=== PATIENT | female | born 1990 | race Caucasian/White ===

== ENCOUNTER 2017-05-09 05:29 | Emergency (ER) | payer OTHER ==
--- NOTE | 2017-05-09 06:46 | ED ORDER SUMMARY ---
..... Patient: LUIS PHAM OrderSheet [facility] VisitID: [id number] [address] [place] [address] 26y, F Registration Date/Time: 05/09/2017 ORDER SHEET Weight: 58.9 kg (stated) Allergies: Penicillins, Sulfa Antibiotics GENERAL ORDERS: I&D Tray (06:15 05/09/2017 Yenny Gregory) (6:18 Aranza Pina) Culture, Wound Deep (Arm) (pus) Urgent (06:16 05/09/2017 Yenny Gregory) (6:18 Aranza Marina.Jing) MEDICATION ORDERS: IV FLUIDS: ORDER SHEET NOTES: [Electronically signed by Meg Singh R.N. (06:58 05/09/2017)] [Electronically signed by Umesh Lind Dr. (05:47 05/11/2017)] [Electronically locked/signed by Meg Singh R.N. (06:58 05/09/2017)]
--- NOTE | 2017-05-09 06:46 | ED CLINICAL REPORT ---
Clinical Report - Physicians/Mid Levels [facility] [address] [place] [address] 05/09/2017 5:33 Patient: LUIS PHAM Time Seen: 05:39; initial patient contact. Arrived- By private vehicle. Historian- patient. HISTORY OF PRESENT ILLNESS Chief Complaint: SKIN RASH and BOIL. This started Boil on L arm x 1 week, leg cellulitis x 1 month and is still present. It was gradual in onset. It is described as painful. It has been located on the left upper extremity and left lower extremity. A possible cause has been identified (IVDA). No recent medication or insect bite. Similar symptoms previously: None. Recent medical care: Not recently seen/assessed. REVIEW OF SYSTEMS No fever, chills or enlarged lymph nodes. All systems otherwise negative, except as recorded above. PAST HISTORY Abscess. Anxiety Reaction. Tetanus immunization status is up-to-date. Additional Surgeries: no known surgeries. Medications: None. Allergies: Penicillins. Definite Severe(hives) Sulfa Antibiotics. (unknown). SOCIAL HISTORY Current every day smoker. History of drug use: heroin, marijuana. ADDITIONAL NOTES The nursing notes have been reviewed. PHYSICAL EXAM Vital Signs: 05/09/2017 05:40 BP: 150/94. HR: 108. RR: 18. O2 saturation: 96%. Temp: 97.7 F. Pain level now: 0/10. Have been reviewed. Hypertensive. Tachycardic. Respiratory rate normal. Temperature normal. Oxygen saturation normal. Appearance: Alert. Oriented X3. No acute distress. Skin: Medium area of cellulitis with tenderness and erythema to left leg. Single medium abscess with fluctuance and pointing to left forearm. Neuro: Oriented X 3. PROGRESS AND PROCEDURES Incision & Drainage of Abscess: Per protocol, time-out completed immediately before the procedure. The abscess is located in the left forearm. Local anesthesia provided using 2% lidocaine. Skin cleansed with Hibiclens. The abscess was incised with a #11 surgical blade. A moderate amount of pus was drained. Cavity was irrigated with saline and packed with gauze. Sample obtained for cultures. A dressing was applied. Estimated blood loss: 5 mL. Disposition: Discharged home in good and improved condition. Condition: good. CLINICAL IMPRESSION Single deep abscess to the left upper extremity with incision and drainage. Cellulitis of the left lower leg. INSTRUCTIONS Your Current Medications: CONTINUE TAKING THE FOLLOWING MEDICATIONS: None*. Prescription Medications: Baclofen 10 mg: take 1 orally every 8 hours. Dispense thirty (30). No refills. Bactroban 2% ointment: apply small amount to affected area three times daily until symptoms better. Dispense twenty-two (22) grams. No refills. Substitution is permissible. Clindamycin 300 mg: take 1 capsule orally every 6 hours for 7 days. No refill. Follow-up: Return to the emergency department in two days for wound check. Screening today revealed the patient's blood pressure to be in the hypertensive range. The patient should follow up with a primary care provider for blood pressure management. Follow-up with: [facility], , , [address], [facility], [id number] Follow up in about two days for wound check. (Electronically signed by Umesh Lind Dr. 05/11/2017 5:47)
--- NOTE | 2017-05-09 06:46 | ED NURSING NOTES ---
Clinical Report - Nurses [facility] [address] [place] [address] 05/09/2017 5:33 Patient: LUIS PHAM TRIAGE Triage time 05:38. Acuity: LEVEL 3. Chief Complaint: SKIN LESION. --05:54 Meg Singh R.N. 05:40 05/09/17. BP: 150/94 taken on the right arm, while lying. HR: 108 (regular and tachycardic). RR: 18. O2 saturation: 96% on room air. Temp: 97.7 F (oral). Pain level now: 0/10. --05:54 Meg Singh R.N. Weight: 58.9 kg stated. Height/Length: 63 inches Per Patient. BMI: 23. --05:48 Meg Singh R.N. Medications None. --05:51 Meg Singh R.N. Allergies Penicillins. Definite Severe(hives) Sulfa Antibiotics. (unknown) --05:52 Meg Singh R.N. History Arrived by private vehicle. Historian: patient. Reported as located on the left arm and left leg. Onset. (leg x month left arm x 1 week). It is described as painful. ( pt reports abscess to left arm x 1week, and open wound to lower left leg for 1 month from falling on gravel). She has had muscle aches. PAST MEDICAL HX: Immunizations: up-to-date. Last normal menstrual period- about 2 months ago. 0. Sexual history - sexually active. No contraception. SOCIAL HX: Never smoker. Occasional alcohol use. History of heavy IV drug use: heroin, marijuana. Recently used drugs today. No infectious disease exposure. ABUSE ASSESSMENT: No report of abuse. SELF HARM ASSESSMENT: A self harm assessment was performed. The patient answered "no" to the question "Have you recently felt down, depressed, or hopeless?", "Have you noticed less interest or pleasure in doing things?", "Do you have thoughts of harming or killing yourself?", "Are you here because you tried to hurt yourself?", "Have you ever tried to hurt yourself before today?", "Have you recently had thoughts about harming or killing others?" and "Do you have any dangerous items in your possession?". FALL RISK ASSESSMENT: Fall risk assessment completed. No fall risk identified. NUTRITIONAL RISK ASSESSMENT: The nutritional risk assessment revealed no deficiencies. FUNCTIONAL ASSESSMENT: Functional assessment: no impairments noted. LEARNING NEEDS ASSESSMENT: The learning needs assessment revealed no barriers. SKIN INTEGRITY ASSESSMENT: Skin integrity risk assessment completed. No skin integrity risk identified. --05:54 Meg Singh R.N. Accompanied by family. Primary physician (none). --05:54 Meg Singh R.N. PROBLEMS: Abscess. Anxiety Reaction. Immunizations. LNMP - Last Normal Menstrual Period. --05:52 Meg Singh R.N. ADDITIONAL SURGERIES: no known surgeries. Interventions ID band on patient. To treatment room. --05:54 Meg Singh R.N. PHYSICAL ASSESSMENT Ambulatory to room. GENERAL / NEURO / PSYCH: Alert. The patient does not appear to be in acute distress. Oriented X 4. HEENT: Pupils equal, round and reactive to light. Mucous membranes are pink. RESPIRATORY: Respirations not labored. Breath sounds within normal limits. CVS: Capillary refill less than 2 seconds. Pulses within normal limits. GI / : Abdomen nontender. SKIN: Skin is warm and dry. Single deep ulceration with erythema and tenderness on the left leg- pt reports blister from fall 1 month ago open and appox 4 cm in dm at time time. Single wound with tenderness on the left forearm- abscess. --05:57 Meg Singh R.N. NURSING PROGRESS NOTES Patient gowned. Two patient identifiers checked. Call light placed in reach. Side rails up x 1. Bed placed in lowest position. Brakes of bed on. Patient ready for evaluation- chart flagged. --05:57 Meg Singh R.N. Applied dressing consisting of Tegaderm and 4x4 gauze. ( xeroform and kerlix applied to left leg wound per MD request,). --06:52 Francisco, Meg, R.N. DISPOSITION / DISCHARGE Departure time: 654. Condition at departure: improved and stable. No learning barriers present. Discharge instructions provided and reviewed with the patient. Reviewed medication(s) side effects, precautions, dosing and course information. Prescription(s) given to the patient. Reviewed wound care instructions. Reviewed referral to family practice for followup. Follow up contact number [phone]. Patient verbalized understanding. Written instructions provided in Malaysian. The patient was discharged home and accompanied by friend. She left the Emergency Department ambulatory and via private vehicle. Cost And Risk Analysis Manager driving. --06:58 Meg Singh R.N. 06:56 05/09/17. BP: 119/71 taken on the right arm, while lying. HR: 104 (regular and tachycardic). RR: 18 (regular and unlabored). O2 saturation: 100% on room air. Temp: deferred. Pain level now deferred. --06:58 Meg Singh R.N. Locked/Released at 05/09/2017 6:58 by Meg Singh R.N.
--- NOTE | 2017-05-09 06:46 | ED CLINICAL REPORT ---
Clinical Report - Physicians/Mid Levels [facility] [address] [place] [address] 05/09/2017 5:33 Patient: LUIS PHAM Time Seen: 05:39; initial patient contact. Arrived- By private vehicle. Historian- patient. HISTORY OF PRESENT ILLNESS Chief Complaint: SKIN RASH and BOIL. This started Boil on L arm x 1 week, leg cellulitis x 1 month and is still present. It was gradual in onset. It is described as painful. It has been located on the left upper extremity and left lower extremity. A possible cause has been identified (IVDA). No recent medication or insect bite. Similar symptoms previously: None. Recent medical care: Not recently seen/assessed. REVIEW OF SYSTEMS No fever, chills or enlarged lymph nodes. All systems otherwise negative, except as recorded above. PAST HISTORY Abscess. Anxiety Reaction. Tetanus immunization status is up-to-date. Additional Surgeries: no known surgeries. Medications: None. Allergies: Penicillins. Definite Severe(hives) Sulfa Antibiotics. (unknown). SOCIAL HISTORY Current every day smoker. History of drug use: heroin, marijuana. ADDITIONAL NOTES The nursing notes have been reviewed. PHYSICAL EXAM Vital Signs: 05/09/2017 05:40 BP: 150/94. HR: 108. RR: 18. O2 saturation: 96%. Temp: 97.7 F. Pain level now: 0/10. Have been reviewed. Hypertensive. Tachycardic. Respiratory rate normal. Temperature normal. Oxygen saturation normal. Appearance: Alert. Oriented X3. No acute distress. Skin: Medium area of cellulitis with tenderness and erythema to left leg. Single medium abscess with fluctuance and pointing to left forearm. Neuro: Oriented X 3. PROGRESS AND PROCEDURES Incision & Drainage of Abscess: Per protocol, time-out completed immediately before the procedure. The abscess is located in the left forearm. Local anesthesia provided using 2% lidocaine. Skin cleansed with Hibiclens. The abscess was incised with a #11 surgical blade. A moderate amount of pus was drained. Cavity was irrigated with saline and packed with gauze. Sample obtained for cultures. A dressing was applied. Estimated blood loss: 5 mL. Disposition: Discharged home in good and improved condition. Condition: good. CLINICAL IMPRESSION Single deep abscess to the left upper extremity with incision and drainage. Cellulitis of the left lower leg. INSTRUCTIONS Your Current Medications: CONTINUE TAKING THE FOLLOWING MEDICATIONS: None*. Prescription Medications: Baclofen 10 mg: take 1 orally every 8 hours. Dispense thirty (30). No refills. Bactroban 2% ointment: apply small amount to affected area three times daily until symptoms better. Dispense twenty-two (22) grams. No refills. Substitution is permissible. Clindamycin 300 mg: take 1 capsule orally every 6 hours for 7 days. No refill. Follow-up: Return to the emergency department in two days for wound check. Screening today revealed the patient's blood pressure to be in the hypertensive range. The patient should follow up with a primary care provider for blood pressure management. Follow-up with: [facility], , , [address], [facility], [address] Follow up in about two days for wound check. (Electronically signed by Umesh Lind Dr. 05/11/2017 5:47)
--- NOTE | 2017-05-09 06:46 | ED NURSING NOTES ---
Clinical Report - Nurses [facility] [address] [place] [address] 05/09/2017 5:33 Patient: LUIS PHAM TRIAGE Triage time 05:38. Acuity: LEVEL 3. Chief Complaint: SKIN LESION. --05:54 Meg Singh R.N. 05:40 05/09/17. BP: 150/94 taken on the right arm, while lying. HR: 108 (regular and tachycardic). RR: 18. O2 saturation: 96% on room air. Temp: 97.7 F (oral). Pain level now: 0/10. --05:54 Meg Singh R.N. Weight: 58.9 kg stated. Height/Length: 63 inches Per Patient. BMI: 23. --05:48 Meg Singh R.N. Medications None. --05:51 Meg Singh R.N. Allergies Penicillins. Definite Severe(hives) Sulfa Antibiotics. (unknown) --05:52 Meg Singh R.N. History Arrived by private vehicle. Historian: patient. Reported as located on the left arm and left leg. Onset. (leg x month left arm x 1 week). It is described as painful. ( pt reports abscess to left arm x 1week, and open wound to lower left leg for 1 month from falling on gravel). She has had muscle aches. PAST MEDICAL HX: Immunizations: up-to-date. Last normal menstrual period- about 2 months ago. 0. Sexual history - sexually active. No contraception. SOCIAL HX: Never smoker. Occasional alcohol use. History of heavy IV drug use: heroin, marijuana. Recently used drugs today. No infectious disease exposure. ABUSE ASSESSMENT: No report of abuse. SELF HARM ASSESSMENT: A self harm assessment was performed. The patient answered "no" to the question "Have you recently felt down, depressed, or hopeless?", "Have you noticed less interest or pleasure in doing things?", "Do you have thoughts of harming or killing yourself?", "Are you here because you tried to hurt yourself?", "Have you ever tried to hurt yourself before today?", "Have you recently had thoughts about harming or killing others?" and "Do you have any dangerous items in your possession?". FALL RISK ASSESSMENT: Fall risk assessment completed. No fall risk identified. NUTRITIONAL RISK ASSESSMENT: The nutritional risk assessment revealed no deficiencies. FUNCTIONAL ASSESSMENT: Functional assessment: no impairments noted. LEARNING NEEDS ASSESSMENT: The learning needs assessment revealed no barriers. SKIN INTEGRITY ASSESSMENT: Skin integrity risk assessment completed. No skin integrity risk identified. --05:54 Meg Singh R.N. Accompanied by family. Primary physician (none). --05:54 Meg Singh R.N. PROBLEMS: Abscess. Anxiety Reaction. Immunizations. LNMP - Last Normal Menstrual Period. --05:52 Meg Singh R.N. ADDITIONAL SURGERIES: no known surgeries. Interventions ID band on patient. To treatment room. --05:54 Meg Singh R.N. PHYSICAL ASSESSMENT Ambulatory to room. GENERAL / NEURO / PSYCH: Alert. The patient does not appear to be in acute distress. Oriented X 4. HEENT: Pupils equal, round and reactive to light. Mucous membranes are pink. RESPIRATORY: Respirations not labored. Breath sounds within normal limits. CVS: Capillary refill less than 2 seconds. Pulses within normal limits. GI / : Abdomen nontender. SKIN: Skin is warm and dry. Single deep ulceration with erythema and tenderness on the left leg- pt reports blister from fall 1 month ago open and appox 4 cm in dm at time time. Single wound with tenderness on the left forearm- abscess. --05:57 Meg Singh R.N. NURSING PROGRESS NOTES Patient gowned. Two patient identifiers checked. Call light placed in reach. Side rails up x 1. Bed placed in lowest position. Brakes of bed on. Patient ready for evaluation- chart flagged. --05:57 Meg Singh R.N. Applied dressing consisting of Tegaderm and 4x4 gauze. ( xeroform and kerlix applied to left leg wound per MD request,). --06:52 Francisco, Meg, R.N. DISPOSITION / DISCHARGE Departure time: 654. Condition at departure: improved and stable. No learning barriers present. Discharge instructions provided and reviewed with the patient. Reviewed medication(s) side effects, precautions, dosing and course information. Prescription(s) given to the patient. Reviewed wound care instructions. Reviewed referral to family practice for followup. Follow up contact number [phone]. Patient verbalized understanding. Written instructions provided in Scottish. The patient was discharged home and accompanied by friend. She left the Emergency Department ambulatory and via private vehicle. Conciliator driving. --06:58 Meg Singh R.N. 06:56 05/09/17. BP: 119/71 taken on the right arm, while lying. HR: 104 (regular and tachycardic). RR: 18 (regular and unlabored). O2 saturation: 100% on room air. Temp: deferred. Pain level now deferred. --06:58 Meg Singh R.N. Locked/Released at 05/09/2017 6:58 by Meg Singh R.N.
--- NOTE | 2017-05-09 06:46 | ED ORDER SUMMARY ---
..... Patient: LUIS PHAM OrderSheet [facility] VisitID: [id number] [address] [place] [address] 26y, F Registration Date/Time: 05/09/2017 ORDER SHEET Weight: 58.9 kg (stated) Allergies: Penicillins, Sulfa Antibiotics GENERAL ORDERS: I&D Tray (06:15 05/09/2017 Yenny Gregory) (6:18 Aranza Pina) Culture, Wound Deep (Arm) (pus) Urgent (06:16 05/09/2017 Yenny Gregory) (6:18 Aranza Marina.Jing) MEDICATION ORDERS: IV FLUIDS: ORDER SHEET NOTES: [Electronically signed by Meg Singh R.N. (06:58 05/09/2017)] [Electronically signed by Umesh Lind Dr. (05:47 05/11/2017)] [Electronically locked/signed by Meg Singh R.N. (06:58 05/09/2017)]
--- NOTE | 2017-05-11 05:47 | ED MAR SUMMARY ---
..... Medication Administration Record [facility] [address] [place], [place] [id number] Patient: LUIS PHAM Visit ID: [id number] 26y, F Weight: 58.9 kg Height/Length: 63 in BMI: 23 ALLERGIES: Sulfa Antibiotics, Penicillins
--- NOTE | 2017-05-11 05:47 | ED DISCHARGE INSTRUCTIONS ---
Patient: LUIS PHAM General Instructions Merged With [facility] VisitID: [id number] [address], [place] [address] 26y, F Registration Date/Time: 05/09/2017 Single deep abscess to the left upper extremity with incision and drainage. Cellulitis of the left lower leg. INSTRUCTIONS Your Current Medications: CONTINUE TAKING THE FOLLOWING MEDICATIONS: None*. Prescription Medications: Baclofen 10 mg: take 1 orally every 8 hours. Dispense thirty (30). No refills. Bactroban 2% ointment: apply small amount to affected area three times daily until symptoms better. Dispense twenty-two (22) grams. No refills. Substitution is permissible. Clindamycin 300 mg: take 1 capsule orally every 6 hours for 7 days. No refill. Follow-up: Return to the emergency department in two days for wound check. Screening today revealed the patient's blood pressure to be in the hypertensive range. The patient should follow up with a primary care provider for blood pressure management. Follow-up with: [facility], , , [address], , [place], [id number] Follow up in about two days for wound check. ADDITIONAL INFORMATION Cellulitis You have an infection of the skin known as cellulitis. This usually starts with a scrape, cut, insect bite, blister or other opening in the skin which becomes infected. This is a serious condition. It must be watched closely to be sure the infection is not spreading. With antibiotic treatment, the size of the red area will gradually shrink in size until the skin returns to normal. This will take 7-10 days. The red area should never increase in size once the antibiotic medicine has been started. Occasionally, an infection will be resistant to one antibiotic and another one will have to be used. Home Care: 1) Limit the use of the affected part, since excess movement can cause the infection to spread. 2) If the infection is on your leg, walk as little as possible during the first few days of the treatment. Keep your leg elevated while sitting. This will reduce swelling. 3) Take all of the antibiotic medicine exactly as directed until it is gone. Be careful not to miss any doses, especially during the first seven days. Follow Up with your doctor or this facility as directed. Check the infected area daily for the warning signs listed below. Get Prompt Medical Attention if any of the following occur: -- Spreading area of redness -- Increasing swelling or pain -- Appearance of pus or drainage -- Fever over 100.4 F (38.0 C) oral, or over 101.4 F (38.6 C) rectal, after two days on antibiotics Abscess [Incision & Drainage] An abscess (sometimes called a boil) occurs when bacteria get trapped under the skin and begin to grow. Pus forms inside the abscess as the body responds to the bacteria. An abscess can occur with an insect bite, ingrown hair, blocked oil gland, pimple, cyst, or puncture wound. Treatment of your abscess has required an incision to drain the pus. If the abscess pocket was large, a gauze packing may have been inserted. This will need to be removed and possibly replaced on your next visit. Antibiotics are not required in the treatment of a simple abscess, unless the infection is spreading into the skin around the wound (known as cellulitis). Healing of the wound will take about one to two weeks depending on the size of the abscess. Healthy tissue will grow from the bottom and sides of the opening until it seals over. Home Care: The wound may drain for the first two days. Cover the wound with a clean dry dressing. If the dressing becomes soaked with blood or pus, change it. If a gauze packing was placed inside the abscess cavity, you may be advised to remove it yourself. You may do this in the shower. Once the packing is removed, you should wash the area in the shower or bath 3 to 4 times a day, until the skin opening has closed. If you were prescribed antibiotics, take them as directed until they are all gone. You may use acetaminophen (Tylenol) or ibuprofen (Motrin, Advil) to control pain, unless another pain medicine was prescribed. [ NOTE: If you have liver disease or ever had a stomach ulcer, talk with your doctor before using these medicines.] Follow Up with your doctor as advised by our staff. If a gauze packing was inserted in your wound, it should be removed in 1-2 days. Check your wound every day for the signs of worsening infection listed below. Get Prompt Medical Attention if any of the following occur: Increasing redness or swelling Red streaks in the skin leading away from the wound Increasing local pain or swelling Continued pus draining from the wound two days after treatment Fever of 100.4F (38C) or higher, or as directed by your healthcare provider Mupirocin Topical ointment What is this medicine? MUPIROCIN (myoo PEER oh sin) is an antibiotic. It is used on the skin to treat skin infections. How should I use this medicine? This medicine is for external use only. Follow the directions on the prescription label. Wash your hands before and after use. Before applying, wash the affected area with mild soap and water and pat dry. Apply a small amount to the affected area and rub gently. You can cover the area with a gauze dressing. Do not get this medicine in your eyes. If you do, rinse out with plenty of cool tap water. Do not use your medicine more often than directed. Finish the full course of medicine prescribed by your doctor or health career coach even if you think your condition is better. Do not use over large areas of burnt skin. Talk to your machine grainer regarding the use of this medicine in children. Special care may be needed. What side effects may I notice from receiving this medicine? Side effects that you should report to your doctor or health career coach as soon as possible: skin rash, redness, continued swelling, burning, itching, stinging, or pain Side effects that usually do not require medical attention (report to your doctor or health career coach if they continue or are bothersome): dry skin, itching What may interact with this medicine? Interactions are not expected. Do not use any other skin products on the affected area without telling your doctor or health career coach. What if I miss a dose? If you miss a dose, take it as soon as you can. If it is almost time for your next dose, take only that dose. Do not take double or extra doses. Where should I keep my medicine? Keep out of the reach of children. Store at room temperature between 20 and 25 degrees C (68 and 77 degrees F). Throw away any unused medicine after the expiration date. What should I tell my health care provider before I take this medicine? They need to know if you have any of these conditions: an unusual or allergic reaction to mupirocin, polyethylene glycol (PEG), or other topical antibiotic medicine or trying to get breast-feeding What should I watch for while using this medicine? Tell your doctor or health career coach if your skin condition does not begin to improve within 3 to 5 days. Clindamycin Hydrochloride Oral capsule What is this medicine? CLINDAMYCIN (SONDRA Castro) is a lincosamide antibiotic. It is used to treat certain kinds of bacterial infections. It will not work for colds, flu, or other viral infections. How should I use this medicine? Take this medicine by mouth with a full glass of water. Follow the directions on the prescription label. You can take this medicine with food or on an empty stomach. If the medicine upsets your stomach, take it with food. Take your medicine at regular intervals. Do not take your medicine more often than directed. Take all of your medicine as directed even if you think your are better. Do not skip doses or stop your medicine early. Talk to your machine grainer regarding the use of this medicine in children. Special care may be needed. What side effects may I notice from receiving this medicine? Side effects that you should report to your doctor or health career coach as soon as possible: allergic reactions like skin rash, itching or hives, swelling of the face, lips, or tongue dark urine pain on swallowing redness, blistering, peeling or loosening of the skin, including inside the mouth unusual bleeding or bruising unusually weak or tired yellowing of eyes or skin Side effects that usually do not require medical attention (report to your doctor or health career coach if they continue or are bothersome): diarrhea itching in the rectal or genital area joint pain nausea, vomiting stomach pain What may interact with this medicine? chloramphenicol erythromycin kaolin products What if I miss a dose? If you miss a dose, take it as soon as you can. If it is almost time for your next dose, take only that dose. Do not take double or extra doses. Where should I keep my medicine? Keep out of the reach of children. Store at room temperature between 20 and 25 degrees C (68 and 77 degrees F). Throw away any unused medicine after the expiration date. What should I tell my health care provider before I take this medicine? They need to know if you have any of these conditions: kidney disease liver disease stomach problems like colitis an unusual or allergic reaction to clindamycin, lincomycin, or other medicines, foods, dyes like tartrazine or preservatives or trying to get breast-feeding What should I watch for while using this medicine? Tell your doctor or healthcare professional if your symptoms do not start to get better or if they get worse. Do not treat diarrhea with over the counter products. Contact your doctor if you have diarrhea that lasts more than 2 days or if it is severe and watery. You have been given the following additional information: Cellulitis Abscess, Incision And Drainage Mupirocin Topical ointment Clindamycin Hydrochloride Oral capsule (Electronically signed by Umesh Lind Dr. 05/11/2017 5:47)
--- NOTE | 2017-05-11 05:47 | ED DISCHARGE INSTRUCTIONS ---
Patient: LUIS PHAM General Instructions [facility] VisitID: [id number] [address], [place] [address] 26y, F Registration Date/Time: 05/09/2017 Single deep abscess to the left upper extremity with incision and drainage. Cellulitis of the left lower leg. INSTRUCTIONS Your Current Medications: CONTINUE TAKING THE FOLLOWING MEDICATIONS: None*. Prescription Medications: Baclofen 10 mg: take 1 orally every 8 hours. Dispense thirty (30). No refills. Bactroban 2% ointment: apply small amount to affected area three times daily until symptoms better. Dispense twenty-two (22) grams. No refills. Substitution is permissible. Clindamycin 300 mg: take 1 capsule orally every 6 hours for 7 days. No refill. Follow-up: Return to the emergency department in two days for wound check. Screening today revealed the patient's blood pressure to be in the hypertensive range. The patient should follow up with a primary care provider for blood pressure management. Follow-up with: [facility], , , [address], , [place], [id number] Follow up in about two days for wound check. ADDITIONAL INFORMATION Cellulitis You have an infection of the skin known as cellulitis. This usually starts with a scrape, cut, insect bite, blister or other opening in the skin which becomes infected. This is a serious condition. It must be watched closely to be sure the infection is not spreading. With antibiotic treatment, the size of the red area will gradually shrink in size until the skin returns to normal. This will take 7-10 days. The red area should never increase in size once the antibiotic medicine has been started. Occasionally, an infection will be resistant to one antibiotic and another one will have to be used. Home Care: 1) Limit the use of the affected part, since excess movement can cause the infection to spread. 2) If the infection is on your leg, walk as little as possible during the first few days of the treatment. Keep your leg elevated while sitting. This will reduce swelling. 3) Take all of the antibiotic medicine exactly as directed until it is gone. Be careful not to miss any doses, especially during the first seven days. Follow Up with your doctor or this facility as directed. Check the infected area daily for the warning signs listed below. Get Prompt Medical Attention if any of the following occur: -- Spreading area of redness -- Increasing swelling or pain -- Appearance of pus or drainage -- Fever over 100.4 F (38.0 C) oral, or over 101.4 F (38.6 C) rectal, after two days on antibiotics Abscess [Incision & Drainage] An abscess (sometimes called a boil) occurs when bacteria get trapped under the skin and begin to grow. Pus forms inside the abscess as the body responds to the bacteria. An abscess can occur with an insect bite, ingrown hair, blocked oil gland, pimple, cyst, or puncture wound. Treatment of your abscess has required an incision to drain the pus. If the abscess pocket was large, a gauze packing may have been inserted. This will need to be removed and possibly replaced on your next visit. Antibiotics are not required in the treatment of a simple abscess, unless the infection is spreading into the skin around the wound (known as cellulitis). Healing of the wound will take about one to two weeks depending on the size of the abscess. Healthy tissue will grow from the bottom and sides of the opening until it seals over. Home Care: The wound may drain for the first two days. Cover the wound with a clean dry dressing. If the dressing becomes soaked with blood or pus, change it. If a gauze packing was placed inside the abscess cavity, you may be advised to remove it yourself. You may do this in the shower. Once the packing is removed, you should wash the area in the shower or bath 3 to 4 times a day, until the skin opening has closed. If you were prescribed antibiotics, take them as directed until they are all gone. You may use acetaminophen (Tylenol) or ibuprofen (Motrin, Advil) to control pain, unless another pain medicine was prescribed. [ NOTE: If you have liver disease or ever had a stomach ulcer, talk with your doctor before using these medicines.] Follow Up with your doctor as advised by our staff. If a gauze packing was inserted in your wound, it should be removed in 1-2 days. Check your wound every day for the signs of worsening infection listed below. Get Prompt Medical Attention if any of the following occur: Increasing redness or swelling Red streaks in the skin leading away from the wound Increasing local pain or swelling Continued pus draining from the wound two days after treatment Fever of 100.4F (38C) or higher, or as directed by your healthcare provider Mupirocin Topical ointment What is this medicine? MUPIROCIN (myoo PEER oh sin) is an antibiotic. It is used on the skin to treat skin infections. How should I use this medicine? This medicine is for external use only. Follow the directions on the prescription label. Wash your hands before and after use. Before applying, wash the affected area with mild soap and water and pat dry. Apply a small amount to the affected area and rub gently. You can cover the area with a gauze dressing. Do not get this medicine in your eyes. If you do, rinse out with plenty of cool tap water. Do not use your medicine more often than directed. Finish the full course of medicine prescribed by your doctor or health patient care technician instructor even if you think your condition is better. Do not use over large areas of burnt skin. Talk to your clearance diver regarding the use of this medicine in children. Special care may be needed. What side effects may I notice from receiving this medicine? Side effects that you should report to your doctor or health patient care technician instructor as soon as possible: skin rash, redness, continued swelling, burning, itching, stinging, or pain Side effects that usually do not require medical attention (report to your doctor or health patient care technician instructor if they continue or are bothersome): dry skin, itching What may interact with this medicine? Interactions are not expected. Do not use any other skin products on the affected area without telling your doctor or health patient care technician instructor. What if I miss a dose? If you miss a dose, take it as soon as you can. If it is almost time for your next dose, take only that dose. Do not take double or extra doses. Where should I keep my medicine? Keep out of the reach of children. Store at room temperature between 20 and 25 degrees C (68 and 77 degrees F). Throw away any unused medicine after the expiration date. What should I tell my health care provider before I take this medicine? They need to know if you have any of these conditions: an unusual or allergic reaction to mupirocin, polyethylene glycol (PEG), or other topical antibiotic medicine or trying to get breast-feeding What should I watch for while using this medicine? Tell your doctor or health patient care technician instructor if your skin condition does not begin to improve within 3 to 5 days. Clindamycin Hydrochloride Oral capsule What is this medicine? CLINDAMYCIN (SONDRA Castro) is a lincosamide antibiotic. It is used to treat certain kinds of bacterial infections. It will not work for colds, flu, or other viral infections. How should I use this medicine? Take this medicine by mouth with a full glass of water. Follow the directions on the prescription label. You can take this medicine with food or on an empty stomach. If the medicine upsets your stomach, take it with food. Take your medicine at regular intervals. Do not take your medicine more often than directed. Take all of your medicine as directed even if you think your are better. Do not skip doses or stop your medicine early. Talk to your clearance diver regarding the use of this medicine in children. Special care may be needed. What side effects may I notice from receiving this medicine? Side effects that you should report to your doctor or health patient care technician instructor as soon as possible: allergic reactions like skin rash, itching or hives, swelling of the face, lips, or tongue dark urine pain on swallowing redness, blistering, peeling or loosening of the skin, including inside the mouth unusual bleeding or bruising unusually weak or tired yellowing of eyes or skin Side effects that usually do not require medical attention (report to your doctor or health patient care technician instructor if they continue or are bothersome): diarrhea itching in the rectal or genital area joint pain nausea, vomiting stomach pain What may interact with this medicine? chloramphenicol erythromycin kaolin products What if I miss a dose? If you miss a dose, take it as soon as you can. If it is almost time for your next dose, take only that dose. Do not take double or extra doses. Where should I keep my medicine? Keep out of the reach of children. Store at room temperature between 20 and 25 degrees C (68 and 77 degrees F). Throw away any unused medicine after the expiration date. What should I tell my health care provider before I take this medicine? They need to know if you have any of these conditions: kidney disease liver disease stomach problems like colitis an unusual or allergic reaction to clindamycin, lincomycin, or other medicines, foods, dyes like tartrazine or preservatives or trying to get breast-feeding What should I watch for while using this medicine? Tell your doctor or healthcare professional if your symptoms do not start to get better or if they get worse. Do not treat diarrhea with over the counter products. Contact your doctor if you have diarrhea that lasts more than 2 days or if it is severe and watery. You have been given the following additional information: Cellulitis Abscess, Incision And Drainage Mupirocin Topical ointment Clindamycin Hydrochloride Oral capsule (Electronically signed by Umesh Lind Dr. 05/11/2017 5:47)
--- NOTE | 2017-05-11 05:47 | ED MED RECONCILIATION SUMMARY ---
Patient: LUIS PHAM Medication Reconciliation Report [facility] VisitID: [id number] [address] [place] [address] 26y, F Registration Date/Time: 05/09/2017 Weight: 58.9 kg Height/Length: 63 in. BMI: 23.0 ALLERGIES: Penicillins, Sulfa Antibiotics The patient's Home Medications are listed below: NONE. The source(s) of the original Home Medication information: Not obtained. The following Medications were given to the patient in the Emergency Department: None. The following Medications were prescribed to the patient: Baclofen 10 mg: take 1 orally every 8 hours. Dispense thirty (30). No refills. -- Umesh Lind Dr. Bactroban 2% ointment: apply small amount to affected area three times daily until symptoms better. Dispense twenty-two (22) grams. No refills. Substitution is permissible. -- Umesh Lind Dr. Clindamycin 300 mg: take 1 capsule orally every 6 hours for 7 days. No refill. -- Umesh Lind Dr.
--- NOTE | 2017-05-11 05:47 | ED MED RECONCILIATION SUMMARY ---
Patient: LUIS PHAM Medication Reconciliation Report [facility] VisitID: [id number] [address] [place] [address] 26y, F Registration Date/Time: 05/09/2017 Weight: 58.9 kg Height/Length: 63 in. BMI: 23.0 ALLERGIES: Penicillins, Sulfa Antibiotics The patient's Home Medications are listed below: NONE. The source(s) of the original Home Medication information: Not obtained. The following Medications were given to the patient in the Emergency Department: None. The following Medications were prescribed to the patient: Baclofen 10 mg: take 1 orally every 8 hours. Dispense thirty (30). No refills. -- Umesh Lind Dr. Bactroban 2% ointment: apply small amount to affected area three times daily until symptoms better. Dispense twenty-two (22) grams. No refills. Substitution is permissible. -- Umesh Lind Dr. Clindamycin 300 mg: take 1 capsule orally every 6 hours for 7 days. No refill. -- Umesh Lind Dr.
--- NOTE | 2017-05-11 05:47 | ED MAR SUMMARY ---
..... Medication Administration Record [facility] [address], [place] [id number] Patient: LUIS PHAM Visit ID: [id number] 26y, F Weight: 58.9 kg Height/Length: 63 in BMI: 23 ALLERGIES: Sulfa Antibiotics, Penicillins
== END 2017-05-09 06:55 | disposition home or self-care (01) ==
LOC: ED SRH 05:29
DX: L02.414 Cutaneous abscess of left upper limb (principal); L03.116 Cellulitis of left lower limb; Z88.0 Allergy status to penicillin; Z88.2 Allergy status to sulfonamides
CPT/HCPCS: 90070; 90131; 90309; 90470

== ENCOUNTER 2017-05-15 09:27 | Emergency (ER) | payer OTHER ==
--- NOTE | 2017-05-15 10:29 | ED NURSING NOTES ---
Clinical Report - Nurses [facility] [address] [place] [address] 05/15/2017 9:27 Patient: LUIS PHAM TRIAGE Triage time 09:37 May 15 2017. Acuity: LEVEL 4. Chief Complaint: RECHECK OF WOUND. TAMELA COMA SCORE: Tamela Coma Scale: 15- eyes open spontaneously (4); best verbal response- oriented x 4 (5); best motor response- obeys commands (6). --09:40 Jorge Hurt R.N. 09:37 05/15/17. BP: 130/78. HR: 112. RR: 18. O2 saturation: 98%. Temp: 97.8 F. Pain level now 0/10. --09:40 Jorge Hurt R.N. Weight: 58.9 kg stated. Height/Length: 63 inches Per Patient. BMI: 23. --09:38 Jorge Hurt R.N. Allergies Penicillins. Definite Severe(hives) Sulfa Antibiotics. (unknown) --09:38 Jorge Hurt R.N. History Arrived by private vehicle. Historian: patient. Location: left forearm. She has had no complaints since the treatment. Previous treatment: Previously seen in this ED three days ago. PO antibiotic given in ED. PAST MEDICAL HX: Last normal menstrual period- 2 days ago. SOCIAL HX: Never smoker. Occasional alcohol use. History of drug use: heroin, marijuana. SELF HARM ASSESSMENT: A self harm assessment was performed. The patient answered "no" to the question "Have you recently felt down, depressed, or hopeless?" and "Do you have thoughts of harming or killing yourself?". FALL RISK ASSESSMENT: Fall risk assessment completed. No fall risk identified. NUTRITIONAL RISK ASSESSMENT: The nutritional risk assessment revealed no deficiencies. FUNCTIONAL ASSESSMENT: Functional assessment: no impairments noted. LEARNING NEEDS ASSESSMENT: The learning needs assessment revealed no barriers. ABUSE ASSESSMENT: Abuse assessment: (yes) The patient was asked "Do you feel safe in your home?". SKIN INTEGRITY ASSESSMENT: Skin integrity risk assessment completed. No skin integrity risk identified. --09:40 Jorge Hurt R.N. PROBLEMS: Cellulitis. Abscess. Anxiety Reaction. Immunizations. LNMP - Last Normal Menstrual Period. --09:38 Jorge Hurt R.N. ADDITIONAL SURGERIES: no known surgeries. Interventions ID band on patient. --09:40 Jorge Hurt R.N. PHYSICAL ASSESSMENT Ambulatory to room. GENERAL / NEURO / PSYCH: Alert. Oriented X 4. Appears in no acute distress. Patient's nutrition appears within normal limits. EXTREMITIES: Extremity pulses are within normal limits. Capillary refill is less than 2 seconds in the extremities. Sensation intact in extremities. ROM of extremities within normal limits. SKIN: Skin is warm and dry. Healing wound. ( Packing in place). --09:41 Jorge Hurt R.N. NURSING PROGRESS NOTES The initial plan of care for this patient includes an assessment with efforts to address patient positioning, appropriate ambient lighting and comfortable environmental temperature; impairment of the integumentary system. Reassurance given. Call light placed in reach. Side rails up x 1. Bed placed in lowest position. Brakes of bed on. --09:42 Jorge Hurt R.N. 10:20. Applied clean bulky dressing consisting of 4x4 gauze, following the application of antibiotic ointment. Secured with tape and jimena. --10:34 Sophie Castillo R.N. DISPOSITION / DISCHARGE 10:28. Condition at departure: improved. No learning barriers present. Discharge instructions provided and reviewed with the patient. Reviewed wound care instructions. Patient verbalized understanding. Written instructions provided in Welsh. The patient was discharged home. She left the Emergency Department ambulatory and via private vehicle. Patient driving. Medication list reviewed and validated. --10:36 Sophie Castillo R.N. 10:25 05/15/17. BP: 114/69. HR: 92. RR: 16. O2 saturation: 100%. Temp: deferred. Pain level now: 12/12. 09:37 05/15/17. BP: 130/78. HR: 112. RR: 18. O2 saturation: 98%. Temp: 97.8 F. Pain level now 010. --10:36 Sophie Castillo R.N. Locked/Released at 05/15/2017 10:36 by Sophie Castillo R.N.
--- NOTE | 2017-05-15 10:29 | ED CLINICAL REPORT ---
Clinical Report - Physicians/Mid Levels [facility] [address] [place] [address] 05/15/2017 9:27 Patient: LUIS PHAM Time Seen: 09:57. Arrived- By private vehicle. Historian- patient. HISTORY OF PRESENT ILLNESS Chief Complaint: WOUND RECHECK. Treated in emergency department six days ago. The patient has no complaints since the procedure was performed. Previous emergency department treatment: Incision and Drainage of abscess and prescription antibiotic given. (She was instructed to follow up in 2 days but didn't). REVIEW OF SYSTEMS No chills, fever, sweats, calf pain or chest pain. No cough, difficulty breathing, pedal edema, palpitations or abdominal pain. No constipation, diarrhea, nausea, vomiting or urinary problems. All systems otherwise negative, except as recorded above. PAST HISTORY Problems: Cellulitis. Abscess. Anxiety Reaction. Additional Surgeries: no known surgeries. Allergies: Penicillins. Definite Severe(hives) Sulfa Antibiotics. (unknown). SOCIAL HISTORY Never smoker. Occasional alcohol use. History of drug use: heroin, marijuana. ADDITIONAL NOTES The nursing notes have been reviewed. PHYSICAL EXAM Vital Signs: 05/15/2017 09:37 BP: 130/78. HR: 112. RR: 18. O2 saturation: 98%. Temp: 97.8 F. Have been reviewed. Appearance: Alert. Head: No swelling of head. Eyes: Pupils equal, round and reactive to light. ENT: Pharynx normal. Neck: Painless ROM. CVS: Heart sounds normal. Respiratory: Breath sounds normal. Abdomen: Soft. Back: ROM normal. Skin: Healing wound. Slight serous drainage present. Single oozing incision on the left forearm. No cellulitis. PROGRESS AND PROCEDURES Abscess Recheck: Time-out completed immediately before the procedure. The abscess is located on the left forearm. Packing is present. Examination of abscess reveals normal healing and no tenderness. No erythema, induration, tenderness, increased warmth or purulent exudate. Skin cleansed with Hibiclens. Packing was removed and the cavity was repacked with gauze. Dresssing applied. Course of Care: Patient is stable. Patient/family counseled. Old medical records reviewed. Disposition: Discharged. Condition: stable. CLINICAL IMPRESSION Abscess check. INSTRUCTIONS Protect wound and keep wound area clean. Change dressing twice daily. Warnings: GENERAL WARNINGS: Return or contact your physician immediately if your condition worsens or changes unexpectedly, if not improving as expected, or if other problems arise. Understanding of the discharge instructions verbalized by patient. Follow-up with: [facility], , , [address], , [place], [id number] Follow up Thursday in three days. Call for an appointment. (Electronically signed by Kee Díaz MD 05/16/2017 9:05)
--- NOTE | 2017-05-15 10:29 | ED CLINICAL REPORT ---
Clinical Report - Physicians/Mid Levels [facility] [address] [place] [address] 05/15/2017 9:27 Patient: LUIS PHAM Time Seen: 09:57. Arrived- By private vehicle. Historian- patient. HISTORY OF PRESENT ILLNESS Chief Complaint: WOUND RECHECK. Treated in emergency department six days ago. The patient has no complaints since the procedure was performed. Previous emergency department treatment: Incision and Drainage of abscess and prescription antibiotic given. (She was instructed to follow up in 2 days but didn't). REVIEW OF SYSTEMS No chills, fever, sweats, calf pain or chest pain. No cough, difficulty breathing, pedal edema, palpitations or abdominal pain. No constipation, diarrhea, nausea, vomiting or urinary problems. All systems otherwise negative, except as recorded above. PAST HISTORY Problems: Cellulitis. Abscess. Anxiety Reaction. Additional Surgeries: no known surgeries. Allergies: Penicillins. Definite Severe(hives) Sulfa Antibiotics. (unknown). SOCIAL HISTORY Never smoker. Occasional alcohol use. History of drug use: heroin, marijuana. ADDITIONAL NOTES The nursing notes have been reviewed. PHYSICAL EXAM Vital Signs: 05/15/2017 09:37 BP: 130/78. HR: 112. RR: 18. O2 saturation: 98%. Temp: 97.8 F. Have been reviewed. Appearance: Alert. Head: No swelling of head. Eyes: Pupils equal, round and reactive to light. ENT: Pharynx normal. Neck: Painless ROM. CVS: Heart sounds normal. Respiratory: Breath sounds normal. Abdomen: Soft. Back: ROM normal. Skin: Healing wound. Slight serous drainage present. Single oozing incision on the left forearm. No cellulitis. PROGRESS AND PROCEDURES Abscess Recheck: Time-out completed immediately before the procedure. The abscess is located on the left forearm. Packing is present. Examination of abscess reveals normal healing and no tenderness. No erythema, induration, tenderness, increased warmth or purulent exudate. Skin cleansed with Hibiclens. Packing was removed and the cavity was repacked with gauze. Dresssing applied. Course of Care: Patient is stable. Patient/family counseled. Old medical records reviewed. Disposition: Discharged. Condition: stable. CLINICAL IMPRESSION Abscess check. INSTRUCTIONS Protect wound and keep wound area clean. Change dressing twice daily. Warnings: GENERAL WARNINGS: Return or contact your physician immediately if your condition worsens or changes unexpectedly, if not improving as expected, or if other problems arise. Understanding of the discharge instructions verbalized by patient. Follow-up with: [facility], , , [address], , [place], [address] Follow up Thursday in three days. Call for an appointment. (Electronically signed by Kee Díaz MD 05/16/2017 9:05)
--- NOTE | 2017-05-16 09:05 | ED DISCHARGE INSTRUCTIONS ---
Patient: LUIS PHAM General Instructions [facility] VisitID: [id number] [address] [place] [address] 26y, F Registration Date/Time: 05/15/2017 Abscess check. INSTRUCTIONS Protect wound and keep wound area clean. Change dressing twice daily. Warnings: GENERAL WARNINGS: Return or contact your physician immediately if your condition worsens or changes unexpectedly, if not improving as expected, or if other problems arise. Understanding of the discharge instructions verbalized by patient. Follow-up with: [facility], , , [address], , [place], [address] Follow up Thursday in three days. Call for an appointment. ADDITIONAL INFORMATION Bandage Change If the bandage becomes wet or dirty, replace it. Otherwise, leave it in place for the first 24 hours. Then once a day: After removing the bandage, wash the area with soap and water. Use a wet cotton swab to loosen and remove any blood or crust that forms on the wound. After cleaning, apply a thin layer of antibiotic ointment or cream. Reapply the bandage. You may shower as usual after the first 24 hours. If the bandage is on an arm or leg, cover it with a plastic bag rubber banded at both ends before showering. No tub baths or swimming until the bandage is removed and the wound healed (at least 7 days). You have been given the following additional information: Dressing Change (Electronically signed by Kee Díaz MD 05/16/2017 9:05)
--- NOTE | 2017-05-16 09:05 | ED DISCHARGE INSTRUCTIONS ---
Patient: LUIS PHAM General Instructions [facility] VisitID: [id number] [address] [place] [address] 26y, F Registration Date/Time: 05/15/2017 Abscess check. INSTRUCTIONS Protect wound and keep wound area clean. Change dressing twice daily. Warnings: GENERAL WARNINGS: Return or contact your physician immediately if your condition worsens or changes unexpectedly, if not improving as expected, or if other problems arise. Understanding of the discharge instructions verbalized by patient. Follow-up with: [facility], , , [address], , [place], [address] Follow up Thursday in three days. Call for an appointment. ADDITIONAL INFORMATION Bandage Change If the bandage becomes wet or dirty, replace it. Otherwise, leave it in place for the first 24 hours. Then once a day: After removing the bandage, wash the area with soap and water. Use a wet cotton swab to loosen and remove any blood or crust that forms on the wound. After cleaning, apply a thin layer of antibiotic ointment or cream. Reapply the bandage. You may shower as usual after the first 24 hours. If the bandage is on an arm or leg, cover it with a plastic bag rubber banded at both ends before showering. No tub baths or swimming until the bandage is removed and the wound healed (at least 7 days). You have been given the following additional information: Dressing Change (Electronically signed by Kee Díaz MD 05/16/2017 9:05)
--- NOTE | 2017-05-16 09:05 | ED MAR SUMMARY ---
..... Medication Administration Record [facility] [address], [place] [id number] Patient: LUIS PHAM Visit ID: [id number] 26y, F Weight: 58.9 kg Height/Length: 63 in BMI: 23 ALLERGIES: Penicillins, Sulfa Antibiotics
--- NOTE | 2017-05-16 09:05 | ED MED RECONCILIATION SUMMARY ---
Patient: LUIS PHAM Medication Reconciliation Report [facility] VisitID: [id number] [address] [place] [address] 26y, F Registration Date/Time: 05/15/2017 Weight: 58.9 kg Height/Length: 63 in. BMI: 23.0 ALLERGIES: Penicillins, Sulfa Antibiotics The patient's Home Medications are listed below: Not obtained. The source(s) of the original Home Medication information: Not obtained. The following Medications were given to the patient in the Emergency Department: None. The following Medications were prescribed to the patient: None.
--- NOTE | 2017-05-16 09:05 | ED MAR SUMMARY ---
..... Medication Administration Record [facility] [address], [place] [id number] Patient: LUIS PHAM Visit ID: [id number] 26y, F Weight: 58.9 kg Height/Length: 63 in BMI: 23 ALLERGIES: Penicillins, Sulfa Antibiotics
--- NOTE | 2017-05-16 09:05 | ED MED RECONCILIATION SUMMARY ---
Patient: LUIS PHAM Medication Reconciliation Report [facility] VisitID: [id number] [address] [place] [address] 26y, F Registration Date/Time: 05/15/2017 Weight: 58.9 kg Height/Length: 63 in. BMI: 23.0 ALLERGIES: Penicillins, Sulfa Antibiotics The patient's Home Medications are listed below: Not obtained. The source(s) of the original Home Medication information: Not obtained. The following Medications were given to the patient in the Emergency Department: None. The following Medications were prescribed to the patient: None.
== END 2017-05-15 10:28 | disposition home or self-care (01) ==
LOC: ED SRH 09:27
DX: Z48.89 Encounter for other specified surgical aftercare (principal); Z88.0 Allergy status to penicillin; Z88.2 Allergy status to sulfonamides